=== PATIENT | male | born 1995 | race Caucasian/White ===

== ENCOUNTER 2018-04-27 05:32 | Emergency (ER) | payer OTHER, BC ==
[~2018-04-27] VITALS: Ht 180.3 cm; Wt 122.5 kg
[2018-04-27] MEDS ORDERED: AUGMENTIN 875-1 EACH PO (07:59)
--- NOTE | 2018-04-27 14:14 | EKG ---
[facility] [address] [facility] [facility] [place], [place] [address] Signed Normal sinus rhythm Nonspecific T wave abnormality Abnormal ECG No previous ECGs available Confirmed by PRIYANK BENNETT MD ([id number]) on 04/27/2018 2:14:01 PM Electronically Signed By: PRIYANK BENNETT MD 04/27/18 1414 PATIENT NAME: RANJIT ULLOA Electrocardiogram DATE OF : [birth year] PHYSICIAN: PRIYANK BENNETT MD REPORT #: [id number] REPORT IS CONFIDENTIAL AND NOT TO BE RELEASED WITHOUT AUTHORIZATION
== END 2018-04-27 09:04 | disposition home or self-care (01) ==
LOC: ED 05:32
DX: R55 Syncope and collapse (principal); J03.80 Acute tonsillitis due to other specified organisms; B96.89 Other specified bacterial agents as the cause of diseases classified elsewhere
CPT/HCPCS: 70450; 71046; 80053; 81001; 83605; 84484; 85025; 85379; 85610; 85730; 86308; 87502; 93005; 93010; 96374; 99284; J0696

== ENCOUNTER 2019-01-20 11:58 | Emergency (ER) | payer OTHER ==
[~2019-01-20] VITALS: Ht 180.3 cm; Wt 122.5 kg
--- OUTSIDE RECORDS SUMMARY | ~2019-01-20 | XMS | Clinical Summary ---
Demographics + + + | Address | [address] | | | [place] [address] | + + + | Home Phone | | + + + | Preferred Language | Unknown | + + + | Marital Status | Single | + + + | Faith Affiliation | Unknown | + + + | Race | Unknown | + + + | Ethnic Group | Unknown | + + + Author + + + | Author | [facility] | + + + | Organization | [facility] | + + + | Address | Unknown | + + + | Phone | Unavailable | + + + Support + + +---------+ + | Name | Relationship | Address | Phone | + + +---------+ + | No,Contact | ECON | Unknown | | + + +---------+ + Care Team Providers + +------+ + | Care Roustabout Supervisor Name | Role | Phone | + +------+ + PP | Unavailable | + +------+ + Allergies Not on File Current Medications Not on file Active Problems Not on file Social History + +-------+ +--------+------+ | Tobacco Use | Types | Packs/Day | Years | Date | | | | | Used | | + +-------+ +--------+------+ | Never Assessed | | | | | + +-------+ +--------+------+ + + + | Sex Assigned at | Date Recorded | | | | + + + | Not on file | | + + + Plan of Treatment Not on file Results Not on filefrom Last 3 Months Insurance + +--------+ +------+-------+---------+ | Payer | Benefi | Subscriber | Type | Phone | Address | | | t Plan | ID | | | | | | / | | | | | | | Group | | | | | + +--------+ +------+-------+---------+ | [employer] | PROVID | [id number] | PPO | | | | PLAN | ENCE | | | | | | | HEALTH | | | | | | | PLAN | | | | | + +--------+ +------+-------+---------+ + +--------+ +--------+ + + | Guarantor Name | Accoun | Relation to | Date | Phone | Billing Address | | | t Type | Patient | of | | | | | | | | | | + +--------+ +--------+ + + | RANJIT BRYANT | Person | Self [birth year] | Home: | [address] | | | al/Nick | | 1994 | [phone] | [place] | | | [place] | | | [phone] | + +--------+ +--------+ + +"
--- OUTSIDE RECORDS SUMMARY | ~2019-01-20 | XMS | Clinical Summary ---
Demographics + + + | Address | [address] | | | [place] [address] | + + + | Home Phone | | + + + | Preferred Language | Unknown | + + + | Marital Status | Single | + + + | Protestant Affiliation | Unknown | + + + | Race | Unknown | + + + | Ethnic Group | Unknown | + + + Author + + + | Author | [facility] | | | and [place] | + + + | Organization | [facility] | | | and [place] | + + + | Address | Unknown | + + + | Phone | Unavailable | + + + Support + + +---------+ + | Name | Relationship | Address | Phone | + + +---------+ + | JOSÉ MIGUEL BRYANT | ECON | Unknown | | + + +---------+ + | David Bryant | ECON | Unknown | Unavailable | + + +---------+ + Care Team Providers + +------+ + | Care Drafter [employer] Name | Role | Phone | + +------+ + | Yahir Diallo MD | PP | | + +------+ + Allergies No Known Allergies Current Medications Not on file Active Problems Not on file Family History + + + + + | Medical History | Relation | Name | Comments | + + + + + | Diabetes, NIDDM | Father | Edward | | | | | Manny | | + + + + + | Hypertension | Father | Edward | | | | | [place] | | + + + + + | Diabetes, NIDDM | Paternal | | | | | Grandfath | | | | | er | | | + + + + + | Hypertension | Paternal | | | | | Grandfath | | | | | er | | | + + + + + + + +--------+ + | Relation | Name | Status | Comments | + + +--------+ + | Father | Edward | Alive | | | | [place]gra[place] | | | + + +--------+ + | Paternal Grandfather | | | | + + +--------+ + Social History + +-------+ +--------+------+ | Tobacco Use | Types | Packs/Day | Years | Date | | | | | Used | | + +-------+ +--------+------+ | Never Smoker | | | | | + +-------+ +--------+------+ + + +---------+ + | Alcohol Use | Drinks/We | oz/Week | Comments | | | ek | | | + + +---------+ + | No | | | | + + +---------+ + + + + | Sex Assigned at | Date Recorded | | | | + + + | Not on file | | + + + Plan of Treatment +--------+---------+ + + + | Date | Type | Specialty | Care Team | Description | +--------+---------+ + + + | 03/07/ | Office | | Jared Stevenson, | | | 2018 | Visit | | [address] | | | | | | [address] | | | | | | [place], [place] | | | | | | [address] | | | | | | | | +--------+---------+ + + + + + + + + | Health Maintenance | Due Date | Last Done | Comments | + + + + + | Vaccine: | | | | | Dtap/Tdap/Td (1 - | 4 | | | | Tdap) | | | | + + + + + | Vaccine: Influenza | | | | | (#1) | 8 | | | + + + + + Results Not on filefrom Last 3 Months Insurance + +--------+ +------+ +---------+ | Payer | Benefi | Subscriber | Type | Phone | Address | | | t Plan | ID | | | | | | / | | | | | | | Group | | | | | + +--------+ +------+ +---------+ | [employer] | PHP | [id number] | PPO | +- | | | PLAN | [place] | | | [id number] | | | | [address] | | | | | | | [place] | | | | | + +--------+ +------+ +---------+ | [employer] [place] [employer] | [id number] | [place] | +- | | | | [place] | 8 | | [phone] | | + +--------+ +------+ +---------+ + +--------+ +--------+ + + | Guarantor Name | Accoun | Relation to | Date | Phone | Billing Address | | | t Type | Patient | of | | | | | | | | | | + +--------+ +--------+ + + | RANJIT BRYANT | Person | Self | [birth year] | Home: | [address] | | | al/Fam | | 1994 | [phone] | [place] | | | [place] | | | [phone] | + +--------+ +--------+ + +"
--- OUTSIDE RECORDS SUMMARY | ~2019-01-20 | XMS | Clinical Summary ---
Demographics + + + | Address | [address] | | | [place] [address] | + + + | Home Phone | | + + + | Preferred Language | Unknown | + + + | Marital Status | Single | + + + | Sikhism Affiliation | Unknown | + + + | Race | Unknown | + + + | Ethnic Group | Unknown | + + + Author + + + | Author | [facility] | + + + | Organization | [facility] | + + + | Address | Unknown | + + + | Phone | Unavailable | + + + Support + + +---------+ + | Name | Relationship | Address | Phone | + + +---------+ + | No,Contact | ECON | Unknown | | + + +---------+ + Care Team Providers + +------+ + | Care Clinical Esthetician Name | Role | Phone | + [...] +------+-------+---------+ | [employer] | PROVID | [id number] | PPO | | | | PLAN [...] | | | [place] | | | [phone] | + +--------+ +--------+ + +"
--- OUTSIDE RECORDS SUMMARY | ~2019-01-20 | XMS | Clinical Summary ---
Demographics + + + | Address | [address] | | | [place] [address] | + + + | Home Phone | | + + + | Preferred Language | Unknown | + + + | Marital Status | Single | + + + | Oriental Orthodox Affiliation | Unknown | + + + | Race | Unknown | + + + | Ethnic Group | Unknown | + + + Author + + + | Author | [facility] | | | and [place] | + + + | Organization | [facility] | | | and [place] | [...] Team Providers + +------+ + | Care Prop Attendant Name | Role | Phone | + [...] | | | | | [place], [place] | | | | | | [phone] | | | | | | | [...] +---------+ | [employer] | PHP | [id number] | PPO | +- | | | PLAN | [place] | | | [id number] | | | | [address] | | | | | | | [place] | | | | | + +--------+ +------+ +---------+ | [employer] [place] | [place] | [id number] | PPO | +- | | | [...] | [place] | | | [phone] | + +--------+ +--------+ + +"
[~2019-01-20 11:58] MED LIST: AUGMENTIN 875-1 EACH PO
[2019-01-20] MEDS ORDERED: KETOROLAC TROME10 MG PO (15:51)
[2019-01-20] MEDS ORDERED: ZITHROMAX250 MG PO (15:51)
== END 2019-01-20 16:19 | disposition home or self-care (01) ==
LOC: ED 11:58
DX: J06.9 Acute upper respiratory infection, unspecified (principal); R53.1 Weakness; F17.200 Nicotine dependence, unspecified, uncomplicated
CPT/HCPCS: 70450; 80053; 81001; 85025; 87502; 96361; 96374; 99284-25; G0480; J2405; J7030

== ENCOUNTER 2020-01-25 21:58 | Emergency (ER) | payer OTHER ==
[~2020-01-25] VITALS: Ht 180.3 cm; Wt 122.5 kg
[~2020-01-25 21:58] MED LIST changes: +KETOROLAC TROME10 MG PO; +ZITHROMAX250 MG PO
== END 2020-01-25 22:27 | disposition home or self-care (01) ==
LOC: ED 21:58
DX: S50.812A Abrasion of left forearm, initial encounter (principal); Z23 Encounter for immunization; W45.0XXA Nail entering through skin, initial encounter
CPT/HCPCS: 90471; 90715; 99282